=== PATIENT | female | born 1970 | race Caucasian/White ===

== ENCOUNTER 2018-10-05 06:51 | Emergency (ER) | payer SELFPAY ==
[2018-10-05] MEDS ORDERED: Benzonatate 100 MG CAP ONE (07:52)
[2018-10-05] MEDS ORDERED: predniSONE 20 MG TAB ONE (07:52)
== END 2018-10-05 08:02 | disposition home or self-care (01) ==
LOC: MADERS 06:51
DX: J20.9 Acute bronchitis, unspecified (principal); F17.210 Nicotine dependence, cigarettes, uncomplicated; Z71.6 Tobacco abuse counseling
CPT/HCPCS: 99406; J7506

== ENCOUNTER 2021-06-11 08:56 | Emergency (ER) | payer SELFPAY ==
[2021-06-12 02:13] LABS: SARS-CoV-2 PCR by NAA Not Detected (NotDetected)
== END 2021-06-11 09:35 | disposition home or self-care (01) ==
LOC: MADERS 08:56
DX: R50.9 Fever, unspecified (principal); R05 Cough; M79.10 Myalgia, unspecified site; Z20.822 Contact with and (suspected) exposure to COVID-19; F17.210 Nicotine dependence, cigarettes, uncomplicated
CPT/HCPCS: 99283; U0003; U0005

== ENCOUNTER 2022-02-03 06:34 | Emergency (ER) | payer SELFPAY ==
[2022-02-03] MEDS ORDERED: Sodium Chloride 0.9% 100 ML BAG ONE (06:45)
[2022-02-03 06:52] LABS: #Basophils 0.2 thou/uL (0.0-0.2); #Eosinphils 0.3 thou/uL (0.0-0.7); #Lymphocytes 1.7 thou/uL (1.20-3.40); #Monocytes 0.7 thou/uL (0.11-0.59); #Neutrophils 12.2 thou/uL (1.40-6.50); %Basophils 1.2 % (0.0-1.0); %Lymphocytes 11.5 % (21.0-51.0); %Monocytes 4.4 % (0.0-10.0); %Neutrophils 80.9 % (42.0-75.0); Hemoglobin 16.5 g/dL (12.0-16.0); Mean Corpuscular Hemoglobin 29.1 pg (27.0-31.0); Mean Platelet Volume 10.1 fL (7.4-10.4); Platelet Count 255 thou/uL (130-400); RBC Distribution Width 14.3 % (11.5-14.5); Red Blood Cell (RBC) Count 5.66 mill/uL (4.20-5.40); White Blood Cell (WBC) Count 15.1 thou/uL (4.8-10.8)
[2022-02-03] MEDS ORDERED: Aspirin Chewable 81 MG TAB ONE (07:05)
[2022-02-03] MEDS ORDERED: Morphine 4 MG/ML VIAL ONE (07:05)
[2022-02-03 07:11] LABS: ALT (SGPT) 12 U/L (8-55); AST (SGOT) 20 U/L (5-34); Albumin 4.4 g/dL (3.5-5.0); Alkaline Phosphatase 108 U/L (40-110); Anion Gap 15 mmol/L (10-20); BUN (Urea Nitrogen) 17 mg/dL (7.0-18.7); Bilirubin, Total 0.5 mg/dL (0.2-1.2); Calc. Creatinine Clearance 0 mL/min (70-130); Calcium 9.3 mg/dL (7.8-10.44); Carbon Dioxide 26 mmol/L (22-29); Chloride 105 mmol/L (98-107); Globulin 3.2 g/dL (2.4-3.5); Glucose 108 mg/dL (70-105); Potassium 4.7 mmol/L (3.5-5.1); Protein, Total 7.6 g/dL (6.0-8.3); Sodium 141 mmol/L (136-145)
[2022-02-03 07:16] LABS: BHCG - Serum Negative (NEGATIVE); Bilirubin Negative (Negative); Blood, Urine Negative (Negative); Clarity Clear (Clear); Glucose, Urine (Dipstick) Negative (Negative); Ketone, Urine Negative (Negative); Leukocyte Small (Negative); Nitrite Negative (Negative); Pregs Control Background? CLEAR/WHITE (CLR/WHITE); Pregs Control Bar Appear? YES (CONTROL BAR); Protein, Urine (Dipstick) Negative (Neg-Trace); Specific Gravity, Urine 1.015 (1.005-1.030); Urobilinogen 0.2 mg/dL (Less than 2)
[2022-02-03 07:17] LABS: Bacteria/HPF 1+ HPF (None Seen); RBC/HPF 0-3 HPF (0-3); WBC/HPF 21-50 HPF (0-3)
[2022-02-03 07:28] LABS: Prothrombin Time 12.8 sec (12.0-14.7)
[2022-02-03 07:29] LABS: PTT 30.9 sec (22.9-36.1)
[2022-02-03 07:31] LABS: D-Dimer Test 0.52 *mcg/mL (0.27-0.43)
[2022-02-03] MEDS ORDERED: cefTRIAXone\\ROCEPHIN 1 GM VIAL ONE (07:34)
[2022-02-03] MEDS ORDERED: Sodium Chloride 0.9% 100 ML ONE (07:34)
[2022-02-03] MEDS ORDERED: Cyclobenzaprine 10 MG TAB ONE (07:36)
[2022-02-03] MEDS ORDERED: Nitroglycerin 0.4 MG TAB 1 EACH ONE (08:04)
[2022-02-03] MEDS ORDERED: Iopamidol 370 76% 125 ML VIAL FS ONE (12:51)
== END 2022-02-03 09:35 | disposition short-term general hospital (02) ==
LOC: MADERS 06:34
DX: I24.9 Acute ischemic heart disease, unspecified (principal); N39.0 Urinary tract infection, site not specified; I49.3 Ventricular premature depolarization; F17.210 Nicotine dependence, cigarettes, uncomplicated
CPT/HCPCS: 71045; 71275; 74174; 80053; 81003; 81015; 83605; 83690; 84484; 84703; 85025; 85379; 85610; 85730; 87086; 93005; 94760; 96365; 96375; J0696; J2270; J3490; Q9967

== ENCOUNTER 2023-04-29 07:16 | Emergency (ER) | payer SELFPAY ==
[2023-04-29] MEDS ORDERED: predniSONE 20 MG TAB ONE (08:09)
[2023-04-29] MEDS ORDERED: Ketorolac Tromethamine 60 MG/2 ML VIAL ONE (08:09)
== END 2023-04-29 09:18 | disposition home or self-care (01) ==
LOC: MADERS 07:16
DX: S39.012A Strain of muscle, fascia and tendon of lower back, initial encounter (principal); F17.210 Nicotine dependence, cigarettes, uncomplicated; X50.0XXA Overexertion from strenuous movement or load, initial encounter
CPT/HCPCS: 72100; 96372; J1885; J7512

== ENCOUNTER 2023-09-11 08:28 | Emergency (ER) | payer SELFPAY ==
[2023-09-11] MEDS ORDERED: Ketorolac Tromethamine 60 MG/2 ML VIAL ONE (09:05)
[2023-09-11] MEDS ORDERED: Amoxicillin/Potassium Clav 875 MG TAB ONE (09:05)
== END 2023-09-11 09:21 | disposition home or self-care (01) ==
LOC: MADERS 08:28
DX: K04.7 Periapical abscess without sinus (principal); I10 Essential (primary) hypertension; F17.210 Nicotine dependence, cigarettes, uncomplicated
CPT/HCPCS: 96372; 99282; J1885

== ENCOUNTER 2023-09-13 08:58 | Emergency (ER) | payer SELFPAY ==
[~2023-09-13 08:58] MED LIST: Iopamidol 370 76% 100 ML VIAL ONE
[2023-09-13] MEDS ORDERED: Ondansetron PF 4 MG/2 ML Vial ONE (09:26)
[2023-09-13] MEDS ORDERED: Clindamycin/D5W 900 mg/50 ml Premix Bag ONE (09:27)
[2023-09-13] MEDS ORDERED: Lactated Ringer's 2,000 ML ONE (09:27)
[2023-09-13] MEDS ORDERED: Ketorolac Tromethamine 30 MG/ML VIAL ONE (09:27)
[2023-09-13] MEDS ORDERED: Famotidine/PF 20 mg/2ml Vial ONE (09:27)
[2023-09-13 09:51] LABS: Prothrombin Time 13.1 sec (12.0-14.7)
[2023-09-13 09:58] LABS: ALT (SGPT) 16 U/L (8-55); AST (SGOT) 18 U/L (5-34); Albumin 4.3 g/dL (3.5-5.0); Alkaline Phosphatase 115 U/L (40-110); Anion Gap 13 mmol/L (10-20); BUN (Urea Nitrogen) 9 mg/dL (9.8-20.1); Bilirubin, Total 0.9 mg/dL (0.2-1.2); Calc. Creatinine Clearance 0 mL/min (70-130); Carbon Dioxide 24 mmol/L (22-29); Chloride 104 mmol/L (98-107); Estimated GFR 89; Globulin 3.5 g/dL (2.4-3.5); Glucose 108 mg/dL (70-105); Potassium 3.8 mmol/L (3.5-5.1); Protein, Total 7.8 g/dL (6.0-8.3); Sodium 137 mmol/L (136-145)
[2023-09-13 10:07] LABS: Band 6 % (5-11); Eosinophils 1 % (0-10); Hematocrit 46.3 % (36.0-47.0); Hemoglobin 14.9 g/dL (12.0-16.0); Lymphocytes 8 % (21-51); MDiff Complete? YES; Mean Corpuscular HGB CONC 32.2 g/dL (32.0-36.0); Mean Corpuscular Hemoglobin 31.5 pg (27.0-31.0); Mean Corpuscular Volume 97.8 fl (78.0-98.0); Mean Platelet Volume 9.8 fL (7.4-10.4); Monocytes 6 % (0-10); Neutrophil 79 % (42-75); Platelet Count 201 10x3/uL (130-400); RBC Distribution Width 13.9 % (11.5-14.5); Red Blood Cell (RBC) Count 4.73 mill/uL (4.20-5.40); White Blood Cell (WBC) Count 12.5 10x3/uL (4.8-10.8)
[2023-09-13] MEDS ORDERED: Vancomycin 1 GM VIAL ONE (12:41)
[2023-09-13] MEDS ORDERED: Vancomycin HCl 750 MG VIAL ONE (12:41)
[2023-09-13] MEDS ORDERED: Sodium Chloride 0.9% 250 ML 500 ML ONE (12:42)
== END 2023-09-13 16:12 | disposition short-term general hospital (02) ==
LOC: MADERS 08:58
DX: K12.2 Cellulitis and abscess of mouth (principal); F17.210 Nicotine dependence, cigarettes, uncomplicated
CPT/HCPCS: 70491; 80053; 83605; 85025; 85610; 85730; 86140; 87040; 87077; 87149; 94760; 96361; 96365; 96366; 96367; 96375; J1885; J2405; J3370; J3490; J7050; J7120; Q9967; S0028